=== PATIENT | male | born 1960 | race Caucasian/White ===

== ENCOUNTER 2022-05-19 17:14 | Emergency (ER) | payer BC ==
[~2022-05-19] VITALS: Ht 180.3 cm; Wt 93.0 kg
[2022-05-19 17:22] VITALS: BP_SYST 108
--- NOTE | 2022-05-19 17:30 | NUR ---
ER at bedside examining patient.
--- NOTE | 2022-05-19 17:30 | NUR ---
JONELLE OBTAINED, LABELED, AND SENT TO LAB
--- NOTE | 2022-05-19 17:38 | NUR ---
RECEIVED PT FROM SINDY PADILLA. PT BIB [facility]. PT A&OX4 WITH LIP SMACKING, C/O CHEST PAIN X 5 HOURS. PT DENIES PAIN AT THIS TIME. PT STATES THAT HE TOOK NITROGLYCERIN AT HOME BUT IS UNABLE TO STATE IF MEDICATION WAS EFFECTIVE THE PAIN COMES AND GOES SO FAST. WILL CONTINUE TO MONITOR AND ASSESS.
[2022-05-19 17:47] LABS: BASOPHILS % (AUTO) 0.6 % (0.0-2.0); EOSINOPHILS # (AUTO) 0.1 K/uL (0.0-0.4); EOSINOPHILS % (AUTO) 1.6 % (0.0-4.0); HEMATOCRIT 32.7 % (36-54); HEMOGLOBIN 10.7 g/dL (14.0-18.0); LYMPHOCYTES # (AUTO) 0.6 K/uL (1.0-5.5); LYMPHOCYTES % (AUTO) 8.2 % (20.5-51.5); MEAN CORPUSCULAR HEMOGLOBIN 28 pg (27-31); MEAN CORPUSCULAR HGB CONC 33 % (32-36); MEAN CORPUSCULAR VOLUME 87 fL (79.0-98.0); MONOCYTES # (AUTO) 0.4 K/uL (0.0-1.0); MONOCYTES % (AUTO) 6.1 % (1.7-9.3); NEUTROPHILS # (AUTO) 5.7 K/uL (1.8-7.7); NEUTROPHILS % (AUTO) 83.5 % (40.0-70.0); PLATELET COUNT (AUTO) 235 K/uL (130-430); RED BLOOD CELL COUNT(AUTO) 3.78 MIL/uL (4.2-6.2); RED CELL DISTRIBUTION WIDTH 18.2 % (9.0-15.0); WHITE BLOOD COUNT (AUTO) 6.8 K/uL (4.8-10.8)
--- NOTE | 2022-05-19 17:56 | NUR ---
CHEST XRAY AT BEDSIDE. APPLIED 2L OXYGEN VIA N/C DUE TO O2 SATS AT 90% AND RESPIRATION RATE AT 23 BREATHS PER MINUTE.
[2022-05-19 17:57] LABS: ANION GAP 7 (5-15); CALCIUM 8.2 mg/dL (8.4-11.0); CHLORIDE 104 mmol/L (98-107); CREATININE 1.25 mg/dL (0.55-1.30); GFR AFRICAN AMERICAN 76 mL/min (>90); GLUCOSE 97 mg/dL (70-99); UREA NITROGEN, BLOOD 22 mg/dL (8-21)
[2022-05-19 18:03] LABS: ALANINE AMINOTRANSFERASE 13 U/L (12-78); ALBUMIN 3.1 g/dL (3.4-4.8); ASPARTATE AMINOTRANSFERASE 21 U/L (10-37)
--- NOTE | 2022-05-19 19:23 | NUR ---
ENDORSED PT TO SINDY MASCORRO. ALL QUESTIONS AND CONCERNS ADDRESSED.
[2022-05-19 20:27] VITALS: BP_SYST 112
--- NOTE | 2022-05-19 20:27 | NUR ---
Patient given written and verbal discharge instructions and verbalizes understanding. ER MD discussed with patient the results and treatment provided. Patient in stable condition. ID arm band removed. IV catheter removed intact and dressing applied, no active bleeding. NO RX given. Patient educated on pain management and to follow up with PMD. Pain Scale . Opportunity for questions provided and answered.
== END 2022-05-19 20:27 | disposition home or self-care (01) ==
LOC: SED 17:14
DX: R07.89 Other chest pain (principal); Z79.899 Other long term (current) drug therapy; Z20.822 Contact with and (suspected) exposure to COVID-19
CPT/HCPCS: 36415; 71045; 80053; 83880; 84484; 85025; 93005; 99285

== ENCOUNTER 2022-05-31 18:32 | Emergency (ER) | payer BC ==
[~2022-05-31] VITALS: Ht 180.3 cm; Wt 93.0 kg
--- NOTE | 2022-05-31 18:34 | NUR ---
Placed in room 06 . Placed on panel monitor, blood pressure machine and pulse oximeter. To gown for exam. Side rails up. Report given to Laureen CALLAHAN.
[2022-05-31 18:35] VITALS: BP_SYST 123
--- NOTE | 2022-05-31 18:39 | NUR ---
ER Dr.DELA KEYES at bedside examining patient.
--- NOTE | 2022-05-31 18:49 | NUR ---
PT BIB [facility] FROM HOME. PT IS A&Ox4. PT C/O OF RIGHT NON-RADIATING CHEST PAIN WHEN PT INHALES X4 DAYS. PT RATES PAIN 4/10 AND DESCRIBES PAIN BETWEEN SHARP AND DULL. PT STATES HE TOOK ONE NITROGLYCERIN PILL AT HOME AND ONE WAS GIVEN IN THE AMBULANCE. PT STATES NITROGLYCERIN IS INEFFECTIVE. PT'S LAST VISIT 05/19/22 FOR SAME SYMPTOMS OF CHEST PAIN. PT DENIES SOB. SAFETY PRECAUTIONS IN PLACE.
[2022-05-31 18:53] LABS: BASOPHILS # (AUTO) 0.1 K/uL (0.0-0.2); EOSINOPHILS # (AUTO) 0.1 K/uL (0.0-0.4); EOSINOPHILS % (AUTO) 1.5 % (0.0-4.0); HEMATOCRIT 36.1 % (36-54); HEMOGLOBIN 11.1 g/dL (14.0-18.0); LYMPHOCYTES # (AUTO) 0.6 K/uL (1.0-5.5); LYMPHOCYTES % (AUTO) 9.1 % (20.5-51.5); MEAN CORPUSCULAR HEMOGLOBIN 27 pg (27-31); MEAN CORPUSCULAR HGB CONC 31 % (32-36); MEAN CORPUSCULAR VOLUME 88 fL (79.0-98.0); MONOCYTES # (AUTO) 0.5 K/uL (0.0-1.0); MONOCYTES % (AUTO) 7.7 % (1.7-9.3); NEUTROPHILS # (AUTO) 5.7 K/uL (1.8-7.7); NEUTROPHILS % (AUTO) 80.7 % (40.0-70.0); PLATELET COUNT (AUTO) 385 K/uL (130-430); RED CELL DISTRIBUTION WIDTH 17.6 % (9.0-15.0)
[2022-05-31 19:09] LABS: ANION GAP 5 (5-15); CALCIUM 8.2 mg/dL (8.4-11.0); CHLORIDE 106 mmol/L (98-107); CREATININE 1.57 mg/dL (0.55-1.30); GFR AFRICAN AMERICAN 58 mL/min (>90); GLUCOSE 99 mg/dL (70-99); UREA NITROGEN, BLOOD 25 mg/dL (8-21)
[2022-05-31 19:16] LABS: ALANINE AMINOTRANSFERASE 19 U/L (12-78); ALBUMIN 3.3 g/dL (3.4-4.8); ASPARTATE AMINOTRANSFERASE 27 U/L (10-37); TOTAL BILIRUBIN 0.7 mg/dL (0.0-1.0)
--- NOTE | 2022-05-31 19:33 | NUR ---
PT STABLE. REPORT GIVEN TO SINDY TIJERINA
[2022-05-31 20:05] VITALS: BP_SYST 128
--- NOTE | 2022-05-31 20:05 | NUR ---
Patient given written and verbal discharge instructions and verbalizes understanding. ER MD Guerra discussed with patient the results and treatment provided. Patient in stable condition. ID arm band removed. IV catheter removed intact and dressing applied, no active bleeding. Patient educated on pain management and to follow up with PMD. Pain Scale 0/10. Opportunity for questions provided and answered.
== END 2022-05-31 20:05 | disposition home or self-care (01) ==
LOC: SED 18:32
DX: I25.10 Atherosclerotic heart disease of native coronary artery without angina pectoris (principal); R07.9 Chest pain, unspecified; I10 Essential (primary) hypertension; Z95.0 Presence of cardiac pacemaker; Z79.899 Other long term (current) drug therapy
CPT/HCPCS: 36415; 71045; 80053; 84484; 85025; 85379; 93005; 99285